=== PATIENT | female | born 1965 | race Caucasian/White ===

== ENCOUNTER 2016-08-31 08:03 | Day surgery (SDC) | payer BC ==
[2016-08-29 10:00] VITALS: BMI 28.1
[~2016-08-31 08:03] MED LIST: LACTATED RINGERS 1,000 ML IV SCH; LIDOCAINE 1% 20 ML VIAL (10MG/ML) FOR IV START INTRADERMA PRN
[2016-08-31 08:18] VITALS: TEMP 98.2
[2016-08-31] MEDS ORDERED: PROPOFOL 10 MG/ML 20 ML VIAL IV ONE (08:29)
[2016-08-31 09:09] VITALS: RESP 16
--- NOTE | 2016-08-31 09:14 | P.PCN ---
Date of Procedure: 08/31/16 Preoperative Diagnosis: Postoperative Diagnosis: Procedure(s) Performed: Brief history: Patient is a pleasant 51-year-old white female, scheduled for an elective upper endoscopy as well as colonoscopy as a part of evaluation of epigastric pain, epigastric fullness, nausea and change in bowel habits for the last 3 months duration. She has daily symptoms and was treated with Protonix as well as Pepcid with minimal help. She had got surgery 3 months ago for symptomatic gallstones. Since then her symptoms have been progressively getting worse. She lost approximately 50 pounds since onset of the symptoms. No prior history of peptic ulcer disease or recent NSAID use. Procedure performed: Esophagogastroduodenoscopy with biopsy Colonoscopy with biopsy Preoperative diagnosis: Abdominal pain, nausea and epigastric fullness Progressive weight loss Change in bowel habits Anesthesia: MAC Procedure: After informed consent was obtained from the patient was brought into the endoscopy unit and IV sedation was administered by anesthesia under continuous monitoring. Initially upper endoscopy was done. The Olympus GF 160 video endoscope was inserted inserted into the mouth and esophagus intubated without any difficulty and was gradually advanced into the stomach and duodenum and carefully examined. The bulb and second part of the duodenum appeared normal. Biopsies were done from the duodenum to rule out celiac disease. The scope was then withdrawn into the stomach adequately insufflated with air and upon careful examination the antrum had mild gastritis and biopsies were done from this area. The body, cardia and fundus appeared normal. The scope was then withdrawn into the esophagus. The GE junction was located at 40 cm to the incisors. It appeared regular with no erythema erosions or ulcerations. Rest of the esophagus appeared normal. Patient tolerated the procedure well. At this time the patient continued to remain sedation. Initial digital rectal examination was normal. Olympus CF 160 video colonoscope was then inserted into the rectum and gradually advanced to the cecum without any difficulty. Careful examination was performed as the scope was gradually being withdrawn. The prep was excellent. terminal ileum was intubated and 20 cm visualized and appeared normal. Random biopsies were done from this area. The cecum, ascending colon, transverse colon, descending colon, sigmoid colon and rectum appeared normal. Biopsies were done from ascending and descending colon to rule out metastatic/collagenous colitis.Retroflexion was performed in the rectum and no lesions were noted. Patient tolerated the procedure well. Impression: 1.Upper endoscopy revealed mild antral gastritis but no evidence of esophagitis or peptic ulcer disease. 2.Colonoscopy was essentially within normal limits with no evidence of colitis or colorectal neoplasia. Recommendations: Findings of this examination were discussed with the patient as well chirag family. She was advised to follow with the biopsy results. She will be seen in the office in 2 weeks. Implants: Indications for Procedure: Operative Findings: Description of Procedure:
[2016-08-31 09:42] VITALS: BP 139/80; PULSE 63
== END 2016-08-31 10:00 | disposition home or self-care (01) ==
LOC: ORWHC2ENDO 08:03
PROVIDERS: ATTEND Internal Medicine Gastroenterology
DX: K62.1 Rectal polyp (principal); K29.50 Unspecified chronic gastritis without bleeding; K21.0 Gastro-esophageal reflux disease with esophagitis; I49.9 Cardiac arrhythmia, unspecified; E78.5 Hyperlipidemia, unspecified; J45.909 Unspecified asthma, uncomplicated; Z88.6 Allergy status to analgesic agent; Z88.2 Allergy status to sulfonamides; Z88.1 Allergy status to other antibiotic agents; Z88.8 Allergy status to other drugs, medicaments and biological substances; Z79.51 Long term (current) use of inhaled steroids; Z79.899 Other long term (current) drug therapy
CPT/HCPCS: 45380; 43239; 81025; 88305; 88342; J2704

== ENCOUNTER → 2017-03-28 | Outpatient (CLI) | payer BC ==
--- NOTE | 2017-03-29 10:59 | MM ---
Reason for exam: screening (asymptomatic). Last mammogram was performed 1 year and 1 month ago. History: Took hormonal contraceptives for 1 year. Physical Findings: A clinical breast exam by your physician is recommended on an annual basis and results should be correlated with mammographic findings. MG 3D Screening Mammo W/Cad Bilateral CC and MLO view(s) were taken. Prior study comparison: March 02, 2016, bilateral MG 3d screening mammo w/cad. February 17, 2015, bilateral MG 3d screening mammo w/cad. There are scattered fibroglandular densities. No significant changes when compared with prior studies. ASSESSMENT: Benign, BI-RAD 2 RECOMMENDATION: Routine screening mammogram of both breasts in 1 year.
== END | disposition home or self-care (01) ==
LOC: RADMAMWWP 07:09
PROVIDERS: ATTEND Family Medicine
DX: Z12.31 Encounter for screening mammogram for malignant neoplasm of breast (principal)
CPT/HCPCS: 77063; 77067

== ENCOUNTER 2017-06-22 14:13 | Inpatient (IN) | payer BC ==
[2017-06-22] MEDS ORDERED: SODIUM CHLORIDE 0.9% 500 ML IV STA (14:36)
[2017-06-22] MEDS ORDERED: FAMOTIDINE 20 MG/2 ML VIAL IV STA (14:37)
[2017-06-22] MEDS: SODIUM CHLORIDE 0.9% 1,000 ML IV STA (14:47)
[2017-06-22 14:58] LABS: Basophils # (A) 0.1 k/uL (0-0.2); Basophils % (A) 1 %; Eosinophils # (A) 0.1 k/uL (0-0.7); Eosinophils % (A) 1 %; HCT 42.6 % (34.0-46.0); HGB 14.7 gm/dL (11.4-16.0); Lymphocytes # (A) 2.1 k/uL (1.0-4.8); Lymphocytes % (A) 24 %; MCH 29.5 pg (25.0-35.0); MCHC 34.6 g/dL (31.0-37.0); MCV 85.1 fL (80.0-100.0); Mean Platelet Volume 6.6; Monocytes # (A) 0.4 k/uL (0-1.0); Monocytes % (A) 5 %; Neutrophils % (A) 68 %; Platelet Count 360 k/uL (150-450); RDW 11.9 % (11.5-15.5); WBC 8.8 k/uL (3.8-10.6)
--- NOTE | 2017-06-22 15:00 | ED ---
Abdominal Pain HPI - General Chief Complaint: Abdominal Pain Stated Complaint: Abdominal pain Time Seen by Provider: 06/22/17 14:27 Source: patient, EMS Mode of arrival: EMS Limitations: no limitations - History of Present Illness Initial Comments: This 52-year-old white female presents with a complaint of some abdominal pain. This is primarily in the midepigastric region. She does relate a significant chronicity in regard to her abdominal pain. She states that it started last year when she had her gallbladder out. She has had it intermittently since. At one time without is related to anxiety and put her on some medications for this and it seemed to help. She also had been treated for gastritis with other medications. She seems to get side effects from all of the medications and essentially stopped all the medications. She saw Dr. Lynn 2 days ago and was told to stop all of her medications as this could be contributing to her abdominal pain. She apparently has not had a EGD for approximately 11 months. She is extremely anxious in regards to her condition and is crying. She denies any fevers or chills. There has been nausea and vomiting but no diarrhea. She received some Zofran via EMS for her nausea and this has resolved. She is reluctant to try any medications other than Pepcid for her current symptoms as she states that she is "very sensitive to medications". No other complaints or modifying factors. - Related Data Home Medications Medication Instructions Recorded Confirmed Albuterol Inhaler [Ventolin Hfa 2 puff INHALATION RT-Q6H PRN 08/29/16 06/22/17 Inhaler] Loratadine [Claritin] 10 mg PO DAILY 08/29/16 06/22/17 Allergies Allergy/AdvReac Type Severity Reaction Status Date / Time amoxicillin [From Augmentin] Allergy Unknown Verified 06/22/17 14:38 cefpodoxime [From Vantin] Allergy lethargic, Verified 06/22/17 14:38 leg aches clavulanic acid Allergy Unknown Verified 06/22/17 14:38 [From Augmentin] levofloxacin [From Levaquin] Allergy Unknown Verified 06/22/17 14:38 NSAIDS (Non-Steroidal Allergy Anaphylaxis Verified 06/22/17 14:38 Anti-Inflamma pantoprazole [From Protonix] Allergy severe Verified 06/22/17 14:38 fatigue Quinolones Allergy Anaphylaxis Verified 06/22/17 14:38 sulfamethoxazole Allergy lethargic, Verified 06/22/17 14:38 [From Bactrim] leg aches trimethoprim [From Bactrim] Allergy lethargic, Verified 06/22/17 14:38 leg aches Review of Systems ROS Statement: Those systems with pertinent positive or pertinent negative responses have been documented in the HPI. ROS Other: All systems not noted in ROS Statement are negative. Past Medical History Past Medical History: Asthma, Hyperlipidemia Additional Past Medical History / Comment(s): occ palpitations, seasonal allergies, nausea, abdominal pain, constipation, gastritis, IBS History of Any Multi-Drug Resistant Organisms: None Reported Past Surgical History: Cholecystectomy Additional Past Surgical History / Comment(s): laproscopy, EGD, Colonoscopy Past Anesthesia/Blood Transfusion Reactions: Motion Sickness Past Psychological History: Anxiety Smoking Status: Never smoker Past Alcohol Use History: None Reported Past Drug Use History: None Reported - Past Family History Mother Family Medical History: No Reported History General Exam - General Exam Comments Initial Comments: GENERAL: The patient is well nourished and well hydrated. VITAL SIGNS: Heart rate, blood pressure, respiratory rate reviewed as recorded in nurse's notes. EYES: Pupils are round and reactive. Extraocular movements are intact. No conjunctival / lid redness or swelling. ENT: No external evidence of injury, swelling, or ecchymosis. Airway is patent. Throat is clear. NECK: Nontender. No swelling or evidence of injury. No subcutaneous emphysema. Trachea is midline. No thyroid mass. HEART: Regular rate and rhythm. Good peripheral pulses. LUNGS/CHEST: Breath sounds clear and equal bilaterally. No rales, rhonchi, or wheezes. No ecchymosis, subcutaneous emphysema, or tenderness. ABDOMEN: There is mild tenderness to the midepigastric region. No palpable masses or organomegaly. No peritoneal signs. No abdominal wall swelling or ecchymosis. EXTREMITIES: No extremity tenderness. Normal muscle tone and function. No thoracolumbar tenderness. NEUROLOGIC: Sensation is grossly intact. Cranial nerve exam reveals face is symmetrical, tongue is midline, speech is clear. SKIN: No abrasions or ecchymosis is noted. No induration or masses noted. PSYCHIATRIC: Alert and oriented. Appropriate behavior and judgment. Limitations: no limitations Course Vital Signs 06/22/17 14:16 Temperature 98.7 F Pulse Rate 70 Respiratory 16 Rate Blood Pressure 164/88 O2 Sat by Pulse 100 Oximetry Medical Decision Making - Medical Decision Making The patient was seen and examined. All diagnostics were reviewed. The laboratories reviewed and is unremarkable. The acute abdominal series does not show any acute process. She does receive some Pepcid intravenously as well as some IV fluids but this is also that she is willing to attempt. She states that she had some mild relief of the Pepcid but the pain later did come back. The case is discussed with Dr. Rodriguez and he recommends close outpatient follow- up. Upon discussing this with the patient, she states that there is no way that she can be discharged home. She refuses to be discharged home stating that she is too sick and needs to know what is causing her problems. She states that she feels worse in the last time she had peptic ulcer disease. The case therefore is discussed with Dr. Tran who is agreeable for admission and GI will be consulted. - Lab Data Result diagrams: 06/22/17 14:48 06/22/17 14:48 Lab Results 06/22/17 06/22/17 06/22/17 Range/Units 14:48 14:48 14:48 WBC 8.8 (3.8-10.6) k/uL RBC 5.00 (3.80-5.40) m/uL Hgb 14.7 (11.4-16.0) gm/dL Hct 42.6 (34.0-46.0) % MCV 85.1 (80.0-100.0) fL MCH 29.5 (25.0-35.0) pg MCHC 34.6 (31.0-37.0) g/dL RDW 11.9 (11.5-15.5) % Plt Count 360 (150-450) k/uL Neutrophils % 68 % Lymphocytes % 24 % Monocytes % 5 % Eosinophils % 1 % Basophils % 1 % Neutrophils # 6.0 (1.3-7.7) k/uL Lymphocytes # 2.1 (1.0-4.8) k/uL Monocytes # 0.4 (0-1.0) k/uL Eosinophils # 0.1 (0-0.7) k/uL Basophils # 0.1 (0-0.2) k/uL PT 11.1 (9.0-12.0) sec INR 1.1 (<1.2) APTT 23.4 (22.0-30.0) sec Sodium 141 (137-145) mmol/L Potassium 4.5 (3.5-5.1) mmol/L Chloride 102 (98-107) mmol/L Carbon Dioxide 25 (22-30) mmol/L Anion Gap 14 mmol/L BUN 10 (7-17) mg/dL Creatinine 0.80 (0.52-1.04) mg/dL Est GFR (CKD-EPI)AfAm >90 (>60 ml/min/1.73 sqM) Est GFR (CKD-EPI)NonAf 85 (>60 ml/min/1.73 sqM) Glucose 100 H (74-99) mg/dL Calcium 10.0 (8.4-10.2) mg/dL Total Bilirubin 0.8 (0.2-1.3) mg/dL AST 27 (14-36) U/L ALT 19 (9-52) U/L Alkaline Phosphatase 79 (38-126) U/L Total Protein 7.4 (6.3-8.2) g/dL Albumin 4.4 (3.5-5.0) g/dL Amylase 50 (30-110) U/L Lipase 57 (23-300) U/L Urine Color Urine Appearance (Clear) Urine pH (5.0-8.0) Ur Specific [place] (1.001-1.035) Urine Protein (Negative) Urine Glucose (UA) (Negative) Urine Ketones (Negative) Urine Blood (Negative) Urine Nitrite (Negative) Urine Bilirubin (Negative) Urine Urobilinogen (<2.0) mg/dL Ur Leukocyte Esterase (Negative) 06/22/17 Range/Units 15:00 WBC (3.8-10.6) k/uL RBC (3.80-5.40) m/uL Hgb (11.4-16.0) gm/dL Hct (34.0-46.0) % MCV (80.0-100.0) fL MCH (25.0-35.0) pg MCHC (31.0-37.0) g/dL RDW (11.5-15.5) % Plt Count (150-450) k/uL Neutrophils % % Lymphocytes % % Monocytes % % Eosinophils % % Basophils % % Neutrophils # (1.3-7.7) k/uL Lymphocytes # (1.0-4.8) k/uL Monocytes # (0-1.0) k/uL Eosinophils # (0-0.7) k/uL Basophils # (0-0.2) k/uL PT (9.0-12.0) sec INR (<1.2) APTT (22.0-30.0) sec Sodium (137-145) mmol/L Potassium (3.5-5.1) mmol/L Chloride (98-107) mmol/L Carbon Dioxide (22-30) mmol/L Anion Gap mmol/L BUN (7-17) mg/dL Creatinine (0.52-1.04) mg/dL Est GFR (CKD-EPI)AfAm (>60 ml/min/1.73 sqM) Est GFR (CKD-EPI)NonAf (>60 ml/min/1.73 sqM) Glucose (74-99) mg/dL Calcium (8.4-10.2) mg/dL Total Bilirubin (0.2-1.3) mg/dL AST (14-36) U/L ALT (9-52) U/L Alkaline Phosphatase (38-126) U/L Total Protein (6.3-8.2) g/dL Albumin (3.5-5.0) g/dL Amylase (30-110) U/L Lipase (23-300) U/L Urine Color Colorless Urine Appearance Clear (Clear) Urine pH 8.0 (5.0-8.0) Ur Specific [place] 1.003 (1.001-1.035) Urine Protein Negative (Negative) Urine Glucose (UA) Negative (Negative) Urine Ketones 1+ H (Negative) Urine Blood Negative (Negative) Urine Nitrite Negative (Negative) Urine Bilirubin Negative (Negative) Urine Urobilinogen <2.0 (<2.0) mg/dL Ur Leukocyte Esterase Negative (Negative) Disposition Clinical Impression: Chronic abdominal pain, Hypertension, Intractable nausea and vomiting, PUD ( peptic ulcer disease) Disposition: ADMITTED IP TO THIS [facility] Condition: Fair Time of Disposition: 15:53 Decision Date: 06/22/17 Decision Time: 15:53
[2017-06-22 15:08] LABS: ALT 19 U/L (9-52); AST 27 U/L (14-36); Albumin 4.4 g/dL (3.5-5.0); Alkaline Phosphatase 79 U/L (38-126); Amylase 50 U/L (30-110); Anion Gap 14 mmol/L; Blood Urea Nitrogen 10 mg/dL (7-17); Carbon Dioxide 25 mmol/L (22-30); Chloride 102 mmol/L (98-107); Glucose 100 mg/dL (74-99); Lipase 57 U/L (23-300); Potassium 4.5 mmol/L (3.5-5.1); Sodium 141 mmol/L (137-145); Total Bilirubin 0.8 mg/dL (0.2-1.3); Total Protein 7.4 g/dL (6.3-8.2)
[2017-06-22 15:09] LABS: Appearance,Urine Clear (Clear); Bilirubin,Urine Negative (Negative); Blood,Urine Negative (Negative); Color,Urine Colorless; Glucose,Urine (UA) Negative (Negative); Ketones,Urine 1+ (Negative); Leukocyte Esterase,Urine Negative (Negative); Nitrite,Urine Negative (Negative); Protein,Urine Negative (Negative); Specific Gravity,Urine 1.003 (1.001-1.035); Urobilinogen,Urine <2.0 mg/dL (<2.0)
[2017-06-22 15:10] LABS: INR 1.1 (<1.2); Partial Thromboplastin Time 23.4 sec (22.0-30.0); Prothrombin Time 11.1 sec (9.0-12.0)
--- NOTE | 2017-06-22 15:40 | XR ---
EXAMINATION TYPE: XR abdomen acute w cxr DATE OF EXAM: 06/22/2017 CLINICAL HISTORY: Abdominal pain and nausea. TECHNIQUE: Single frontal view of chest is obtained. Supine and upright views of the abdomen are acq uired. COMPARISON: None. FINDINGS: The lungs are grossly clear without pleural effusion or pneumothorax. Cardiac silhouette size appears within normal limits. Osseous structures are intact. Gas is noted in nondistended stomach and small bowel loops. Gas and fecal material is seen in nondis tended colon and rectum. Cholecystectomy clips are noted. No pneumoperitoneum is present. Slight unde rlying levoconvex scoliosis is present. IMPRESSION: 1. No acute pulmonary process. 2. Overall nonspecific but likely nonobstructive bowel gas pattern.
[2017-06-22] MEDS ORDERED: NALOXONE 0.4 MG/ML 1 ML VIAL IV PRN (15:59)
[2017-06-22] MEDS ORDERED: ALBUTEROL NEBULIZED 2.5 MG/3 ML INHALATION PRN (16:05)
--- NOTE | 2017-06-22 16:31 | P.HPIM ---
History of Present Illness H&P Date: 06/22/17 Chief Complaint: Nausea vomiting and abdominal pain Patient is a 52-year-old female with a known history of asthma, anxiety, seasonal ALLERGIES, constipation, IBS, hyperlipidemia and history of gastritis and endoscopy about a year back came to the hospital with complaints of epigastric abdominal pain getting worse for the past 2 days. Patient has been having problems with epigastric discomfort for the past 1 year when she had her gallbladder surgery. Since then she's been having intermittent pain. Epigastric region. Patient did take Protonix previously and stopped for a month saying that it made her lethargic and weak. Patient says that she has his problems started from 05/18/2017 when she had nausea vomiting and flank pain. Patient was found have hydronephrosis at [facility] and was referred to urologist patient was given 7 day course of Keflex and had cystoscopy 2 weeks let her. Patient says that she developed reaction to tramadol after that. patient was told that she had protein in the urine. Patient was treated with Augmentin for 4 days which made her more nauseated and stopped taking after 4 days. Her daughter is also elevated at the time. Patient went to [place] and stayed for a week. At some point patient was also given Ativan for anxiety. Patient was treated with probiotic which made her sick and stopped taking it. Patient contacted Dr. Lynn and thought she maybe having IBS symptoms..Since last Monday patient has not been taking anything and presented to hospital today with worsening epigastric abdominal pain and nausea and vomiting. Patient denied any complaints of chest pain or shortness of breath. No headache or dizziness or lightheadedness. No leg swelling no diarrhea. Patient wa given Zofran by EMS for nausea and vomiting. She is reluctant to try any medications other than Pepcid for her current symptoms as she states that she is "very sensitive to medications". abdominal x-ray showed no acute pulmonary process, overall nonspecific but likely nonobstructive bowel gas pattern on 08/31/2016 1.Upper endoscopy revealed mild antral gastritis but no evidence of esophagitis or peptic ulcer disease. 2.Colonoscopy was essentially within normal limits with no evidence of colitis or colorectal neoplasia. Review of Systems Constitutional: Patient denies any fever or chills . No generalized weakness or weight loss. Abdomen: patient does have nausea vomiting and epigastric abdominal pain. No diarrhea patient does have constipation Cardiovascular: Patient denies any chest pain or short of breath no palpitations. Respiratory: patient denied any cough is from production. No shortness of breath Neurologic: Patient denied any numbness or tingling headache. Musculoskeletal: Patient denies any complaints of joint swelling or deformity. Skin: Negative Psychiatric: Negative Endocrine: No heat or cold intolerance. No recent weight gain. Genitourinary: No dysuria or hematuria. All other 14 point ROS negative except the above Past Medical History Past Medical History: Asthma, Hyperlipidemia Additional Past Medical History / Comment(s): occ palpitations, seasonal allergies, nausea, abdominal pain, constipation, gastritis, IBS History of Any Multi-Drug Resistant Organisms: None Reported Past Surgical History: Cholecystectomy Additional Past Surgical History / Comment(s): laproscopy, EGD, Colonoscopy Past Anesthesia/Blood Transfusion Reactions: Motion Sickness Past Psychological History: Anxiety Smoking Status: Never smoker Past Alcohol Use History: None Reported Past Drug Use History: None Reported - Past Family History Mother Family Medical History: No Reported History Medications and Allergies Home Medications Medication Instructions Recorded Confirmed Type Albuterol Inhaler [Ventolin Hfa 2 puff INHALATION RT-Q6H PRN 08/29/16 06/22/17 History Inhaler] Loratadine [Claritin] 10 mg PO DAILY 08/29/16 06/22/17 History Allergies Allergy/AdvReac Type Severity Reaction Status Date / Time amoxicillin [From Augmentin] Allergy Unknown Verified 06/22/17 14:38 cefpodoxime [From Vantin] Allergy lethargic, Verified 06/22/17 14:38 leg aches clavulanic acid Allergy Unknown Verified 06/22/17 14:38 [From Augmentin] levofloxacin [From Levaquin] Allergy Unknown Verified 06/22/17 14:38 NSAIDS (Non-Steroidal Allergy Anaphylaxis Verified 06/22/17 14:38 Anti-Inflamma pantoprazole [From Protonix] Allergy severe Verified 06/22/17 14:38 fatigue Quinolones Allergy Anaphylaxis Verified 06/22/17 14:38 sulfamethoxazole Allergy lethargic, Verified 06/22/17 14:38 [From Bactrim] leg aches trimethoprim [From Bactrim] Allergy lethargic, Verified 06/22/17 14:38 leg aches Physical Exam Vitals: Vital Signs Temp Pulse Resp BP Pulse Ox 06/22/17 14:16 98.7 F 70 16 164/88 100 Intake and Output 06/22/17 06/22/17 06/22/17 06:59 14:59 22:59 Other: Weight 89.811 kg PHYSICAL EXAMINATION: Patient is lying in the bed comfortably, no acute distress, awake alert and oriented.anxious. HEENT: Normocephalic. Neck is supple. Pupils reactive. Nostrils clear. Oral cavity is moist. Ears reveal no drainage. Neck reveals no JVD, carotid bruits, or thyromegaly. CHEST EXAMINATION: Trachea is central. Symmetrical expansion. Lung hebert clear to auscultation and percussion. CARDIAC: Normal S1, S2 with no gallops. No murmurs ABDOMEN: Soft. mild epigastric tenderness.Bowel sounds normal. No organomegaly. No abdominal bruits. Extremities: reveal no edema. No clubbing or cyanosis Neurologically awake, alert, oriented x3 with well-coordinated movements. No focal deficits noted Skin: No rash or skin lesions. Psychiatric: Coperative. Nonsuicidal Musculoskeletal: No joint swelling or deformity. Normal range of motion. Results CBC & Chem 7: 06/22/17 14:48 06/22/17 14:48 Labs: Abnormal Lab Results - Last 24 Hours (Table) 06/22/17 06/22/17 Range/Units 14:48 15:00 Glucose 100 H (74-99) mg/dL Urine Ketones 1+ H (Negative) Thrombosis Risk Factor Assmnt - DVT/VTE Prophylaxis DVT/VTE Prophylaxis: Pharmacologic Prophylaxis ordered, Mechanical Prophylaxis ordered Assessment and Plan Assessment: abdominal pain epigastric with nausea vomiting possible gastritis. could be related to recent antibiotic use. history of antral gastritis gastritis recent history of right hydroureter History of IBS anxiety Asthma controlled Hyperlipidemia Seasonal ALLERGIES ALLERGY to multiple antibiotics and pain medications DVT prophylaxis plan: Patient becontinued on IV fluids and Pepcid 20 minutes twice a day and symptomatic management for nausea and vomiting with Zofran. GI has been consulted. We'll follow up closely. Further recommendations based on the clinical course. Discussed with patient extensively and all questions were answered. Time with Patient: Greater than 30
[2017-06-22] MEDS: MORPHINE SULFATE 4MG/4ML SYRG IV PRN (20:33)
[2017-06-22] MEDS: FAMOTIDINE 20 MG/2 ML VIAL IV SCH (21:11)
[2017-06-23] MEDS: ACETAMINOPHEN TAB 325 MG TAB PO PRN ×2 (01:18→19:22)
[2017-06-23] MEDS: SODIUM CHLORIDE 0.9% 1,000 ML IV STA (01:25)
[2017-06-23] MEDS: ONDANSETRON 4 MG/2 ML VIAL IVP PRN ×2 (03:29→11:27)
[2017-06-23] MEDS: MORPHINE SULFATE 4MG/4ML SYRG IV PRN (03:35)
[2017-06-23] MEDS ORDERED: ENOXAPARIN 40 MG/0.4 ML SYRINGE SQ SCH (09:00)
[2017-06-23] MEDS: FAMOTIDINE 20 MG/2 ML VIAL IV SCH ×2 (09:06→21:02)
[2017-06-23] MEDS: LORATADINE 10 MG TAB PO SCH (09:07)
[2017-06-23 10:35] VITALS: BMI 32.9
--- NOTE | 2017-06-23 10:50 | P.CONS ---
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 Patient has been experiencing these types of symptoms consistently and intermittently for several months. She was recently placed on Keflex Augmentin for kidney/urinary infection with a recent urologic procedure. Her symptoms seemed to have exacerbated when these antibiotics were prescribed. Last dose of antibiotics about 12 days ago. She is frustrated with her symptoms tearful. She reports sensitivity to a lot of medications that actually can exacerbate her GI symptoms. She has tried some off label medications in the past such as Lexapro with short-term improvement but then develops recurrence of symptoms. She has been taking Zofran without improvement. She is intolerant to PPI therapy as it caused profound fatigue in the past. Pepcid has cause severe constipation. She has been tested for celiac and H. pylori in the past; both negative. She underwent EGD colonoscopy evaluation by Dr. Lynn August 2016 for evaluation of epigastric pain and fullness nausea change in bowel habits with profound unintentional 50# weight loss with findings of mild antral gastritis and colonoscopy was within normal limits. She has no personal history of peptic ulcer disease. Denies hematemesis hematochezia melena diarrhea fever chills. Her weight has stabilized. White count 8.8. Hemoglobin 14.7. BUN 10. Creatinine 0.8. LFTs lipase within normal limits. No NSAIDs or aspirin. No alcohol. Abdominal x-rays no acute pulmonary process. Nonobstructive bowel gas pattern. Patient reports a recent CT at [facility] within the last few weeks to her memory was reported as normal. Review of Systems Constitutional: Denies fever, chills, sweats, weight gain, or loss. HEENT: Negative for migraines, blurred vision or loss, earaches, drainage, tinnitus, oral mucosal lesions, dysphagia, or odynophagia. CARDIAC: Negative for chest pain, arrhythmias, or palpitation. RESPIRATORY: Negative for shortness of breath, hemoptysis, cough, or sputum production. GI: See HPI for pertinent findings. : Negative for hematuria, urgency, frequency, polyuria, or dysuria. GYNc: Denies possibility of . Negative vaginal discharge. MUSCULOSKELETAL: Negative for muscle aches, swelling, arthritis, and arthralgias. NEUROLOGIC: Negative for stroke or TIA. ENDOCRINE: Negative for thyroid problems. SKIN: Negative for rash or itching. PSYCHIATRIC: Negative history for depression and anxiety Past Medical History Past Medical History: Asthma, Hyperlipidemia Additional Past Medical History / Comment(s): past occ palpitations, seasonal allergies, nausea, abdominal pain, constipation, gastritis, IBS History of Any Multi-Drug Resistant Organisms: None Reported Past Surgical History: Cholecystectomy Additional Past Surgical History / Comment(s): laproscopy, EGD, Colonoscopy, pt stated 2 weeks ago had a scope(not sure what it was called but was told her rt kidney was swollen" Past Anesthesia/Blood Transfusion Reactions: Motion Sickness Smoking Status: Never smoker - Past Family History Mother Family Medical History: Congestive Heart Failure (CHF) Father Family Medical History: Myocardial Infarction ([place]) Medications and Allergies Home Medications Medication Instructions Recorded Confirmed Type Albuterol Inhaler [Ventolin Hfa 2 puff INHALATION RT-Q6H PRN 08/29/16 06/22/17 History Inhaler] Loratadine [Claritin] 10 mg PO DAILY 08/29/16 06/22/17 History Allergies Allergy/AdvReac Type Severity Reaction Status Date / Time amoxicillin [From Augmentin] Allergy Unknown Verified 06/22/17 17:24 cefpodoxime [From Vantin] Allergy lethargic, Verified 06/22/17 17:24 leg aches clavulanic acid Allergy Unknown Verified 06/22/17 17:24 [From Augmentin] levofloxacin [From Levaquin] Allergy Unknown Verified 06/22/17 17:24 NSAIDS (Non-Steroidal Allergy Anaphylaxis Verified 06/22/17 17:24 Anti-Inflamma pantoprazole [From Protonix] Allergy severe Verified 06/22/17 17:24 fatigue Quinolones Allergy Anaphylaxis Verified 06/22/17 17:24 sulfamethoxazole Allergy lethargic, Verified 06/22/17 17:24 [From Bactrim] leg aches trimethoprim [From Bactrim] Allergy lethargic, Verified 06/22/17 17:24 leg aches Physical Exam Vitals: Vital Signs Temp Pulse Pulse Resp BP BP Pulse Ox 06/23/17 08:25 97.5 F L 63 17 150/81 100 06/23/17 01:15 98.0 F 60 18 129/81 99 06/22/17 20:16 97.9 F 67 16 136/86 97 06/22/17 16:59 97.9 F 64 16 161/82 98 06/22/17 16:32 77 16 157/91 100 06/22/17 14:16 98.7 F 70 16 164/88 100 Intake and Output 06/22/17 06/23/17 06/23/17 22:59 06:59 14:59 Intake Total 970 Balance 970 Intake: Intake, IV Titration 970 Amount Sodium Chloride 0.9% 1, 970 000 ml @ 100 mls/hr IV . Q10H STA Rx#:[id number] Other: # Voids 1 1 Weight 89.811 kg General appearance: The patient is alert, oriented, in no acute distress but tearful. HET: Head is normocephalic and atraumatic. Pupils are equal and reactive. Oropharynx is clear without lesions. Neck: Supple without lymphadenopathy. Trachea midline. Heart: S1 S2. Regular rate and rhythm. Lungs: No crackles or wheezes are heard. Abdomen: Soft, midepigastric tenderness, nondistended with bowel sounds. No peritoneal signs. No palpable organomegaly or masses. Extremities: Normal skin color and turgor. No cyanosis, rash, ulceration, clubbing, or edema. Radial and pedal pulses are 2/4 bilaterally. Neurological: No focal deficits. Strength and sensation are grossly intact. Results CBC & Chem 7: 06/22/17 14:48 06/22/17 14:48 Labs: Abnormal Lab Results - Last 24 Hours (Table) 06/22/17 06/22/17 Range/Units 14:48 15:00 Glucose 100 H (74-99) mg/dL Urine Ketones 1+ H (Negative) Abdominal x-ray: report reviewed (Dr. Rodriguez) Assessment and Plan (1) Epigastric pain Narrative/Plan: 52-year-old female admitted with persistent intermittent intractable nausea GI heaves burning epigastric pain for several months possible peptic ulcer disease possible gastritis possible duodenitis. Current Visit: Yes Status: Acute Code(s): R10.13 - EPIGASTRIC PAIN SNOMED Code(s): 92708610 Plan: 1. Continue symptomatic supportive measures. Gastrin level to assess for hypersecretory condition such as Yelena-Holloway syndrome. We'll proceed with EGD/biopsies this afternoon. 2. Nothing by mouth except medications. The aspnet developer has discussed the risks, benefits and alternative therapies for the above-mentioned procedure and for both sedation/analgesia as well as necessary blood product administration, if indicated, as they pertain to this patient. The patient has indicated understanding and acceptance of the risks and procedures discussed. Thank you for this kind referral and the opportunity to participate in the care of your patient. This consultation was discussed with Dr. Rodriguez. The impression and plan of care have been directed as dictated.
[2017-06-23] MEDS ORDERED: IV FLUID CONTINUATION 1,000 ML IV ONE (15:15)
[2017-06-23] MEDS ORDERED: LIDOCAINE 1% INJ 10MG/ML (20 ML MDV) ONE (15:15)
[2017-06-23] MEDS ORDERED: PROPOFOL 10 MG/ML 20 ML VIAL IV ONE (15:15)
[2017-06-23] MEDS ORDERED: SODIUM CHLORIDE 0.9% 500 ML IV ONE (15:48)
--- NOTE | 2017-06-23 16:05 | P.PCN ---
Date of Procedure: 06/23/17 Procedure(s) Performed: Procedure: Esophagogastroduodenoscopy and biopsy. Preoperative diagnosis: Epigastric pain and nausea. Postoperative diagnosis: Mild antral gastritis. Preparation and sedation: Was provided by anesthesia. Brief clinical history: The patient is a 52-year-old female with past medical history of cholecystectomy who was admitted with intractable nausea, dry heaves and midepigastric burning upper GI discomfort. Patient has been experiencing these type of symptoms consistently and intermittently for several months. She was recently placed on Keflex and Augmentin for kidney/urinary infection with a recent urologic procedure. Her symptoms seemed to have exacerbated when these antibiotics were prescribed. Last dose of antibiotics about 12 days ago. She is frustrated with her symptoms and tearful. She reports sensitivity to a lot of medications that actually can exacerbate her GI symptoms. She has tried some off label medications in the past with short-term improvement but then develops recurrence of symptoms. She has been taking Zofran without improvement. She is intolerant to PPI therapy as it caused profound fatigue in the past. Pepcid has cause severe constipation. She has been tested for celiac and H. pylori in the past, both were negative. She underwent EGD and colonoscopy evaluation by Dr. Lynn in August 2016 for evaluation of epigastric pain and fullness, nausea and change in bowel habits with profound 50 lb unintentional weight loss with findings of mild antral gastritis and normal colonoscopy. She has no personal history of peptic ulcer disease. Denies hematemesis, hematochezia, melena, diarrhea, fever or chills. Her weight has stabilized. White count 8.8. Hemoglobin 14.7. BUN 10. Creatinine 0.8. LFTs and lipase within normal limits. No NSAIDs or aspirin. No alcohol. Abdominal x -rays showed no acute pulmonary process. Nonobstructive bowel gas pattern. Patient reports having had a CT at [facility] within the last few weeks that was reported as normal. Other details are summarized in the history and physical and dictated consultations and progress notes. This evaluation is to assess for peptic ulcer disease or other pathology. Procedure: With the patient on her left lateral decubitus position and after informed consent and adequate sedation, I passed the Olympus-GIF 160 video upper endoscope through the cricopharyngeus down the esophagus. The esophagus appeared healthy with no obvious erosions, ulcers, strictures or Pathak's esophagus. No definite hiatal hernia. The endoscope was then passed into the stomach which was insufflated with air and inspected in detail including the retroflex view in the cardia. There was some minimal mottling and erythema in the stomach but no ulcers or erosions. Pyloric channel, duodenal bulb, post bulbar area and descending duodenum appeared within normal limits. I obtained biopsies from the duodenum, antrum and esophagus then the endoscope was withdrawn. Plan: The patient was reassured. I discussed with her as well. Will await biopsy results. Continue symptomatic treatment. Further plans based on her course and biopsy results.
[2017-06-23] MEDS ORDERED: ALPRAZolam 0.25 MG TAB PO PRN (22:01)
[2017-06-24] MEDS: ONDANSETRON 4 MG/2 ML VIAL IVP PRN (03:50)
[2017-06-24] MEDS: LORATADINE 10 MG TAB PO SCH (07:49)
[2017-06-24] MEDS: FAMOTIDINE 20 MG/2 ML VIAL IV SCH (07:49)
[2017-06-24 12:19] VITALS: BP 124/82; PULSE 64; RESP 18; TEMP 97.7
[2017-06-24] MEDS ORDERED: MORPHINE ORAL SOLN 10 MG/5 ML CUP PO PRN (13:33)
[2017-06-24] MEDS ORDERED: FAMOTIDINE 20 MG TAB PO SCH (21:00)
== END 2017-06-24 16:33 | disposition home or self-care (01) | DRG 392 ==
LOC: EC 14:13 → 6PED 15:59 → OBSVTOIN 06-23 15:34
PROVIDERS: ADMIT Internal Medicine; ATTEND Internal Medicine
PROC: 0DB78ZX Excision of Stomach, Pylorus, Via Natural or Artificial Opening Endoscopic, Diagnostic (ICD-10-PCS; 2017-06-23)
PROC: 0DB58ZX Excision of Esophagus, Via Natural or Artificial Opening Endoscopic, Diagnostic (ICD-10-PCS; 2017-06-23)
PROC: 0DB98ZX Excision of Duodenum, Via Natural or Artificial Opening Endoscopic, Diagnostic (ICD-10-PCS; principal; 2017-06-23 07:30)
DX: K29.60 Other gastritis without bleeding (principal); E78.5 Hyperlipidemia, unspecified; J45.909 Unspecified asthma, uncomplicated; F41.9 Anxiety disorder, unspecified; I10 Essential (primary) hypertension; K27.9 Peptic ulcer, site unspecified, unspecified as acute or chronic, without hemorrhage or perforation; R11.2 Nausea with vomiting, unspecified; K58.1 Irritable bowel syndrome with constipation; Z82.49 Family history of ischemic heart disease and other diseases of the circulatory system; Z88.8 Allergy status to other drugs, medicaments and biological substances; Z88.2 Allergy status to sulfonamides; Z88.1 Allergy status to other antibiotic agents; Z79.899 Other long term (current) drug therapy; Z90.49 Acquired absence of other specified parts of digestive tract; Z87.448 Personal history of other diseases of urinary system; Z88.0 Allergy status to penicillin
CPT/HCPCS: 36415; 43239; 74022; 80053; 81003; 81025; 82150; 82941; 83690; 85025; 85610; 85730; 88305; 96361; 96374; 99285

== ENCOUNTER 2017-08-26 10:37 | Emergency (ER) | payer BC ==
[2017-08-26 10:49] VITALS: TEMP 98.6
--- NOTE | 2017-08-26 11:38 | ED ---
General Adult HPI - General Chief complaint: Recheck/Abnormal Lab/Rx Stated complaint: HYPERTENSION, DIZZINESS Time Seen by Provider: 08/26/17 11:01 Source: patient, RN notes reviewed Mode of arrival: ambulatory Limitations: no limitations - History of Present Illness Initial comments: Patient 52-year-old female presented to the emergency room today with chief complaint of body aches and nausea. She says she's had symptoms on and off over the last several weeks. She states followed the family doctor was told that vitamin D level was low. She states that there were not going to treat her she went to an childcare center director who gave her prescription to treat the vitamin D level. She states she's taken a few of the status post states after taking them last night she noticed that she cannot feeling well. She states she aches in her arms and legs. Also admits to feeling nauseous. States that she noticed a few spots consistent with hives. States took Benadryl earlier this morning which she believes made her feel better. She states she feels that the symptoms are starting to come back again. She denies any other complaints or symptoms at this time. Patient denies any recent fever, chills, shortness of breath, chest pain, abdominal pain, vomiting, numbness or tingling, dysuria or hematuria, constipation or diarrhea, headaches or visual changes, or any other complaints. - Related Data Home Medications Medication Instructions Recorded Confirmed Albuterol Inhaler [Ventolin Hfa 2 puff INHALATION RT-Q6H PRN 08/29/16 06/22/17 Inhaler] Loratadine [Claritin] 10 mg PO DAILY 08/29/16 06/22/17 Previous Rx's Medication Instructions Recorded Famotidine [Pepcid] 20 mg PO BID #60 tab 06/24/17 Allergies Allergy/AdvReac Type Severity Reaction Status Date / Time amoxicillin [From Augmentin] Allergy Unknown Verified 08/26/17 10:49 cefpodoxime [From Vantin] Allergy lethargic, Verified 08/26/17 10:49 leg aches clavulanic acid Allergy Unknown Verified 08/26/17 10:49 [From Augmentin] levofloxacin [From Levaquin] Allergy Unknown Verified 08/26/17 10:49 NSAIDS (Non-Steroidal Allergy Anaphylaxis Verified 08/26/17 10:49 Anti-Inflamma pantoprazole [From Protonix] Allergy severe Verified 08/26/17 10:49 fatigue Quinolones Allergy Anaphylaxis Verified 08/26/17 10:49 sulfamethoxazole Allergy lethargic, Verified 08/26/17 10:49 [From Bactrim] leg aches trimethoprim [From Bactrim] Allergy lethargic, Verified 08/26/17 10:49 leg aches Review of Systems ROS Statement: Those systems with pertinent positive or pertinent negative responses have been documented in the HPI. ROS Other: All systems not noted in ROS Statement are negative. Past Medical History Past Medical History: Asthma, Hyperlipidemia Additional Past Medical History / Comment(s): past occ palpitations, seasonal allergies, nausea, abdominal pain, constipation, gastritis, IBS, vitamin D low History of Any Multi-Drug Resistant Organisms: None Reported Past Surgical History: Cholecystectomy Additional Past Surgical History / Comment(s): laproscopy, EGD, Colonoscopy, pt stated 2 weeks ago had a scope(not sure what it was called but was told her rt kidney was swollen" Past Anesthesia/Blood Transfusion Reactions: Motion Sickness Past Psychological History: Anxiety Smoking Status: Never smoker Past Alcohol Use History: None Reported Past Drug Use History: None Reported - Past Family History Mother Family Medical History: Congestive Heart Failure (CHF) Father Family Medical History: Myocardial Infarction ([place]) General Exam - General Exam Comments Initial Comments: General: The patient is awake and alert, in no distress, and does not appear acutely ill. Eye: Pupils are equal, round and reactive to light, extra-ocular movements are intact. No nystagmus. There is normal conjunctiva bilaterally. No signs of icterus. Ears, nose, mouth and throat: There are moist mucous membranes and no oral lesions. Neck: The neck is supple, there is no tenderness or JVD. Cardiovascular: There is a regular rate and rhythm. No murmur, rub or gallop is appreciated. Respiratory: Lungs are clear to auscultation, respirations are non-labored, breath sounds are equal. No wheezes, stridor, rales, or rhonchi. Gastrointestinal: Soft, non-distended, non-tender abdomen without masses or organomegaly noted. There is no rebound or guarding present. No CVA tenderness. Musculoskeletal: Normal ROM, no tenderness. Strength 5/5. Sensation intact. Pulses equal bilaterally 2+. Neurological: A&O x 3. CN II-XII intact, There are no obvious motor or sensory deficits. Coordination appears grossly intact. Speech is normal. Skin: Skin is warm and dry and no rashes or lesions are noted. Psychiatric: Cooperative, appropriate mood & affect, normal judgment. Limitations: no limitations Course Vital Signs 08/26/17 08/26/17 10:45 12:50 Temperature 98.6 F Pulse Rate 79 62 Respiratory 18 20 Rate Blood Pressure 136/83 164/88 O2 Sat by Pulse 99 99 Oximetry Medical Decision Making - Medical Decision Making Patient rechecked at this time and show no signs of distress. She doesn't that she's feeling better. She was given Benadryl. She states Benadryl does seem to improve her symptoms. Patient unsure if it's related to the vitamin D pills that she began taking a few days ago and that could be a reaction. At this time patient's labs are reviewed and are unremarkable. Patient is advised to hold tablets of vitamin D following up with family doctor over the next 2 days. Advised return here to the emergency room symptoms increase worsen. Advised use Benadryl as needed. - Lab Data Result diagrams: 08/26/17 11:43 08/26/17 11:43 Lab Results 08/26/17 08/26/17 08/26/17 Range/Units 11:43 11:43 12:00 WBC 7.2 (3.8-10.6) k/uL RBC 4.94 (3.80-5.40) m/uL Hgb 14.9 (11.4-16.0) gm/dL Hct 43.4 (34.0-46.0) % MCV 88.0 (80.0-100.0) fL MCH 30.3 (25.0-35.0) pg MCHC 34.4 (31.0-37.0) g/dL RDW 12.7 (11.5-15.5) % Plt Count 319 (150-450) k/uL Neutrophils % 59 % Lymphocytes % 31 % Monocytes % 7 % Eosinophils % 1 % Basophils % 1 % Neutrophils # 4.3 (1.3-7.7) k/uL Lymphocytes # 2.3 (1.0-4.8) k/uL Monocytes # 0.5 (0-1.0) k/uL Eosinophils # 0.1 (0-0.7) k/uL Basophils # 0.1 (0-0.2) k/uL Sodium 140 (137-145) mmol/L Potassium 4.2 (3.5-5.1) mmol/L Chloride 102 (98-107) mmol/L Carbon Dioxide 25 (22-30) mmol/L Anion Gap 13 mmol/L BUN 12 (7-17) mg/dL Creatinine 0.71 (0.52-1.04) mg/dL Est GFR (CKD-EPI)AfAm >90 (>60 ml/min/1.73 sqM) Est GFR (CKD-EPI)NonAf >90 (>60 ml/min/1.73 sqM) Glucose 101 H (74-99) mg/dL Calcium 9.3 (8.4-10.2) mg/dL Phosphorus 3.6 (2.5-4.5) mg/dL Magnesium 2.3 (1.6-2.3) mg/dL Total Bilirubin 0.7 (0.2-1.3) mg/dL AST 23 (14-36) U/L ALT 26 (9-52) U/L Alkaline Phosphatase 73 (38-126) U/L Total Protein 7.3 (6.3-8.2) g/dL Albumin 4.5 (3.5-5.0) g/dL TSH 1.330 (0.465-4.680) mIU/L Urine Color Light Yellow Urine Appearance Clear (Clear) Urine pH 7.0 (5.0-8.0) Ur Specific Kennard 1.004 (1.001-1.035) Urine Protein Negative (Negative) Urine Glucose (UA) Negative (Negative) Urine Ketones Negative (Negative) Urine Blood Negative (Negative) Urine Nitrite Negative (Negative) Urine Bilirubin Negative (Negative) Urine Urobilinogen <2.0 (<2.0) mg/dL Ur Leukocyte Esterase Small H (Negative) Urine RBC <1 (0-5) /hpf Urine WBC 1 (0-5) /hpf Ur Squamous Epith Cells 2 (0-4) /hpf Amorphous Sediment Rare H (None) /hpf Urine Bacteria Rare H (None) /hpf Urine Mucus Rare H (None) /hpf Disposition Clinical Impression: Adverse drug reaction Disposition: HOME SELF-CARE Condition: Good Instructions: Vitamin D Deficiency (ED) Additional Instructions: Please use medication as discussed. Please follow-up with family doctor in the next 2 days. Please return to emergency room if the symptoms increase or worsen or for any other concerns. Is patient prescribed a controlled substance at d/c from ED?: No Referrals: Gomez Fuentes MD [Primary Care Provider] - 1-2 days Time of Disposition: 13:21
[2017-08-26] MEDS ORDERED: diphenhydrAMINE 50 MG/ML 1 ML VIAL IVP STA (12:26)
[2017-08-26 12:39] LABS: Basophils # (A) 0.1 k/uL (0-0.2); Basophils % (A) 1 %; Eosinophils # (A) 0.1 k/uL (0-0.7); Eosinophils % (A) 1 %; HCT 43.4 % (34.0-46.0); HGB 14.9 gm/dL (11.4-16.0); Lymphocytes # (A) 2.3 k/uL (1.0-4.8); Lymphocytes % (A) 31 %; MCH 30.3 pg (25.0-35.0); MCHC 34.4 g/dL (31.0-37.0); Mean Platelet Volume 7.1; Monocytes # (A) 0.5 k/uL (0-1.0); Monocytes % (A) 7 %; Neutrophils # (A) 4.3 k/uL (1.3-7.7); Neutrophils % (A) 59 %; Platelet Count 319 k/uL (150-450); RBC 4.94 m/uL (3.80-5.40); RDW 12.7 % (11.5-15.5); WBC 7.2 k/uL (3.8-10.6)
[2017-08-26] MEDS ORDERED: SODIUM CHLORIDE 0.9% 1,000 ML IV STA (12:47)
[2017-08-26 12:52] VITALS: BP 164/88; PULSE 62; RESP 20
[2017-08-26 12:54] LABS: Amorphous Sediment,Urine Rare /hpf; Appearance,Urine Clear (Clear); Bacteria,Urine Rare /hpf; Bilirubin,Urine Negative (Negative); Blood,Urine Negative (Negative); Color,Urine Light Yellow; Glucose,Urine (UA) Negative (Negative); Ketones,Urine Negative (Negative); Leukocyte Esterase,Urine Small (Negative); Mucus,Urine Rare /hpf; Nitrite,Urine Negative (Negative); Protein,Urine Negative (Negative); RBC,Urine <1 /hpf (0-5); Specific Gravity,Urine 1.004 (1.001-1.035); Squamous Epithelial Cell,Urine 2 /hpf (0-4); Urobilinogen,Urine <2.0 mg/dL (<2.0); WBC,Urine 1 /hpf (0-5)
[2017-08-26 12:58] LABS: ALT 26 U/L (9-52); AST 23 U/L (14-36); Albumin 4.5 g/dL (3.5-5.0); Alkaline Phosphatase 73 U/L (38-126); Anion Gap 13 mmol/L; Blood Urea Nitrogen 12 mg/dL (7-17); Calcium 9.3 mg/dL (8.4-10.2); Carbon Dioxide 25 mmol/L (22-30); Chloride 102 mmol/L (98-107); Glucose 101 mg/dL (74-99); Magnesium 2.3 mg/dL (1.6-2.3); Phosphorus 3.6 mg/dL (2.5-4.5); Potassium 4.2 mmol/L (3.5-5.1); Sodium 140 mmol/L (137-145); Total Bilirubin 0.7 mg/dL (0.2-1.3); Total Protein 7.3 g/dL (6.3-8.2)
== END 2017-08-26 13:30 | disposition home or self-care (01) ==
LOC: EC 10:37
DX: R11.0 Nausea (principal); T50.905A Adverse effect of unspecified drugs, medicaments and biological substances, initial encounter; M79.601 Pain in right arm; M79.602 Pain in left arm; M79.604 Pain in right leg; M79.605 Pain in left leg; L50.0 Allergic urticaria; J45.909 Unspecified asthma, uncomplicated; Z79.899 Other long term (current) drug therapy; Z88.0 Allergy status to penicillin; Z88.1 Allergy status to other antibiotic agents; Z88.6 Allergy status to analgesic agent; Z88.8 Allergy status to other drugs, medicaments and biological substances; Z88.2 Allergy status to sulfonamides
CPT/HCPCS: 36415; 80053; 84443; 83735; 84100; 85025; 81001; 82306; 99284; 96374; 96361; J1200

== ENCOUNTER → 2018-04-05 | Outpatient (CLI) | payer BC ==
--- NOTE | 2018-04-08 13:16 | MM ---
Reason for exam: screening (asymptomatic). Last mammogram was performed 1 year ago. History: Patient is postmenopausal. Took hormonal contraceptives for 1 year. Taking estrogen for 5 months. Taking progesterone for 5 months. MG 3D Screening Mammo W/Cad Bilateral CC and MLO view(s) were taken. Prior study comparison: March 28, 2017, bilateral MG 3d screening mammo w/cad. March 02, 2016, bilateral MG 3d screening mammo w/cad. The breast tissue is heterogeneously dense. This may lower the sensitivity of mammography. Stable benign calcifications. No discrete abnormality. No significant changes when compared with prior studies. ASSESSMENT: Benign, BI-RAD 2 RECOMMENDATION: Routine screening mammogram of both breasts in 1 year.
== END | disposition home or self-care (01) ==
LOC: RADMAMWWP 07:59
PROVIDERS: ATTEND Family Medicine
DX: Z12.31 Encounter for screening mammogram for malignant neoplasm of breast (principal)
CPT/HCPCS: 77063; 77067

== ENCOUNTER → 2019-04-11 | Outpatient (CLI) | payer BC ==
--- NOTE | 2019-04-12 14:00 | MM ---
Reason for exam: screening (asymptomatic). Last mammogram was performed 1 year ago. History: Patient is postmenopausal. Took hormonal contraceptives for 1 year. Taking estrogen for 5 months. Taking progesterone for 5 months. Physical Findings: A clinical breast exam by your physician is recommended on an annual basis and results should be correlated with mammographic findings. MG 3D Screening Mammo W/Cad Bilateral CC and MLO view(s) were taken. Prior study comparison: April 05, 2018, bilateral MG 3d screening mammo w/cad. March 28, 2017, bilateral MG 3d screening mammo w/cad. The breast tissue is heterogeneously dense. This may lower the sensitivity of mammography. Stable benign calcifications. There is no discrete abnormality. No significant changes when compared with prior studies. ASSESSMENT: Benign, BI-RAD 2 RECOMMENDATION: Routine screening mammogram of both breasts in 1 year.
== END | disposition home or self-care (01) ==
LOC: RADMAMWWP 14:42
PROVIDERS: ATTEND Obstetrics & Gynecology
DX: Z12.31 Encounter for screening mammogram for malignant neoplasm of breast (principal)
CPT/HCPCS: 77063; 77067

== ENCOUNTER → 2020-04-23 | Outpatient (CLI) | payer BC ==
--- NOTE | 2020-04-24 11:39 | MM ---
Reason for exam: screening (asymptomatic). Last mammogram was performed 1 year ago. History: Patient is postmenopausal. Took hormonal contraceptives for 1 year. Taking estrogen for 1 year 5 months. Taking progesterone for 1 year 5 months. Physical Findings: A clinical breast exam by your physician is recommended on an annual basis and results should be correlated with mammographic findings. MG 3D Screening Mammo W/Cad Bilateral CC and MLO view(s) were taken. Prior study comparison: April 11, 2019, bilateral MG 3d screening mammo w/cad. April 05, 2018, bilateral MG 3d screening mammo w/cad. The breast tissue is heterogeneously dense. This may lower the sensitivity of mammography. Stable benign calcifications. There is no discrete abnormality. No significant changes when compared with prior studies. ASSESSMENT: Benign, BI-RAD 2 RECOMMENDATION: Routine screening mammogram of both breasts in 1 year.
== END | disposition home or self-care (01) ==
LOC: RADMAMWWP 07:59
PROVIDERS: ATTEND Obstetrics & Gynecology
DX: Z12.31 Encounter for screening mammogram for malignant neoplasm of breast (principal)
CPT/HCPCS: 77063; 77067

== ENCOUNTER → 2021-05-17 | Outpatient (CLI) | payer BC ==
--- NOTE | 2021-05-19 12:35 | MM ---
Reason for exam: screening (asymptomatic). Last mammogram was performed 1 year and 1 month ago. History: Patient is postmenopausal. Took hormonal contraceptives for 1 year. Taking estrogen for 1 year 5 months. Taking progesterone for 1 year 5 months. Physical Findings: A clinical breast exam by your physician is recommended on an annual basis and results should be correlated with mammographic findings. MG 3D Screening Mammo W/Cad Bilateral CC and MLO view(s) were taken. Prior study comparison: April 23, 2020, bilateral MG 3d screening mammo w/cad. April 11, 2019, bilateral MG 3d screening mammo w/cad. There are scattered fibroglandular densities. There is chronic nodularity in the right breast. No significant changes when compared with prior studies. ASSESSMENT: Benign, BI-RAD 2 RECOMMENDATION: Routine screening mammogram of both breasts in 1 year.
== END | disposition home or self-care (01) ==
LOC: RADMAMWWP 15:57
PROVIDERS: ATTEND Obstetrics & Gynecology
DX: Z12.31 Encounter for screening mammogram for malignant neoplasm of breast (principal); Z78.0 Asymptomatic menopausal state
CPT/HCPCS: 77063; 77067

== ENCOUNTER → 2023-06-23 | Outpatient (CLI) | payer BC ==
--- NOTE | 2023-06-26 13:26 | MM ---
Reason for Exam: Screening (asymptomatic). Last mammogram was performed 1 year(s) and 1 month(s) ago. Patient History: Menarche at age 13. First Full-Term at age 29. Postmenopausal. Patient has history of breast feeding. Currently using Estrogen, for 1 year, 5 months. Currently using Progesterone, for 1 year, 5 months. Patient used Hormonal Contraceptives for 1 year. Risk Values: Nelsy 5 year model risk: 1.5%. NCI Lifetime model risk: 8.5%. Prior Study Comparison: 03/28/2017 Bilateral Screening Mammogram, [facility]. 04/05/2018 Bilateral Screening Mammogram, [facility]. 04/11/2019 Bilateral Screening Mammogram, [facility]. 04/23/2020 Bilateral Screening Mammogram, [facility]. 05/17/2021 Bilateral Screening Mammogram, [facility]. 05/18/2022 Bilateral MG 3D screening mammo w/cad, [facility]. Tissue Density: There are scattered areas of fibroglandular density. Findings: Analyzed By CAD. Right breast: There is no suspicious group of microcalcifications or new suspicious mass. Left breast: There is no suspicious group of microcalcifications or new suspicious mass. Overall Assessment: Negative, BI-RAD 1 Management: Screening Mammogram of both breasts in [address] [facility] will attempt to contact patient to return for supplemental views and ultrasound if indicated. Patient should continue monthly self-breast exams. A clinical breast exam by your physician is recommended on an annual basis. This exam should not preclude additional follow-up of suspicious palpable abnormalities. Note on Nelsy scores and lifetime risk: 1. A Nelsy score greater than 3% is considered moderate risk. If this is the case, consider specialist referral to assess eligibility for a risk reducing agent. 2. If overall lifetime risk for the development of breast cancer is 20% or higher, the patient may qualify for future screening with alternating mammogram and breast MRI. Electronically signed and approved by: Gomez Pérez DO
== END | disposition home or self-care (01) ==
LOC: RADMAMWWP 07:00
PROVIDERS: ATTEND Family Medicine
DX: Z12.31 Encounter for screening mammogram for malignant neoplasm of breast (principal); Z78.0 Asymptomatic menopausal state
CPT/HCPCS: 77063; 77067

== ENCOUNTER → 2024-06-28 | Outpatient (CLI) | payer SELFPAY ==
--- NOTE | 2024-06-28 09:39 | MM ---
Reason for Exam: Screening (asymptomatic). Last screening mammogram was performed 12 month(s) ago. Patient History: Menarche at age 13. First Full-Term at age 29. Postmenopausal. Patient has history of breast feeding. Currently using Estrogen, for 1 year, 5 months. Currently using Progesterone, for 1 year, 5 months. Patient used Hormonal Contraceptives for 1 year. Risk Values: Nelsy 5 year model risk: 1.5%. NCI Lifetime model risk: 8.3%. Prior Study Comparison: 03/28/2017 Bilateral Screening Mammogram, [facility]. 04/05/2018 Bilateral Screening Mammogram, [facility]. 04/11/2019 Bilateral Screening Mammogram, [facility]. 04/23/2020 Bilateral Screening Mammogram, [facility]. 05/17/2021 Bilateral Screening Mammogram, [facility]. 05/18/2022 Bilateral MG 3D screening mammo w/cad, [facility]. 06/23/2023 Bilateral MG 3D screening mammo w/cad, [facility]. Tissue Density: The breasts are heterogeneously dense, which may obscure small masses. Findings: Analyzed By CAD. There is no suspicious group of microcalcifications or new suspicious mass in either breast. Benign-appearing calcifications. Overall Assessment: Benign, BI-RAD 2 Management: Screening Mammogram of both breasts in 1 year. . Patient should continue monthly self-breast exams. A clinical breast exam by your physician is recommended on an annual basis. This exam should not preclude additional follow-up of suspicious palpable abnormalities. Note on Nelsy scores and lifetime risk: 1. A Nelsy score greater than 3% is considered moderate risk. If this is the case, consider specialist referral to assess eligibility for a risk reducing agent. 2. If overall lifetime risk for the development of breast cancer is 20% or higher, the patient may qualify for future screening with alternating mammogram and breast MRI. [facility], , 06/28/2024 9:36 AM. Electronically signed and approved by: Allan Cassidy M.D. Radiologis
== END | disposition home or self-care (01) ==
LOC: RADMAMWWP 08:58
PROVIDERS: ATTEND Obstetrics & Gynecology
DX: Z12.31 Encounter for screening mammogram for malignant neoplasm of breast (principal); R92.333 Mammographic heterogeneous density, bilateral breasts; R92.1 Mammographic calcification found on diagnostic imaging of breast; Z78.0 Asymptomatic menopausal state; Z92.0 Personal history of contraception
CPT/HCPCS: 77063; 77067